=== PATIENT | female | born 2000 | race Two or more races ===

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

== ENCOUNTER 2021-02-15 10:20 | Observation (INO) | payer MEDICAID ==
[2021-02-15 11:36] LABS: Basophils # (auto) 0 10 ^3/uL (0-0.2); Basophils % (auto) 0.5 % (0.0-2.0); Eosinophils # (auto) 0 10 ^3/uL (0-0.8); Eosinophils % (auto) 0.3 % (0.0-7.0); Hematocrit 35.5 % (36.0-46.0); Hemoglobin 12.3 g/dL (12.2-16.2); Lymphocytes # (auto) 1.5 10 ^3/uL (0.4-5.4); Mean Corpuscular Hemoglobin 29.3 pg (28.0-32.0); Mean Corpuscular Hgb Conc. 34.6 g/dL (32.0-36.0); Mean Corpuscular Volume 84.8 fL (80.0-100.0); Monocytes # (auto) 0.4 10 ^3/uL (0-1.3); Neutrophils # (auto) 5.2 10 ^3/uL (1.6-8.6); Neutrophils % (auto) 73.2 % (37.0-80.0); Red Blood Cells 4.19 10^6/uL (4.0-5.20); White Blood Cell 7.1 10^3/uL (4.4-10.8)
[2021-02-15 12:00] LABS: Albumin 2.6 g/dL (3.4-5.0); Calcium 8.1 mg/dL (8.5-10.1); Potassium 3.6 mmol/L (3.5-5.1)
[2021-02-15 12:03] LABS: Bilirubin, Total 0.2 mg/dL (0.2-1.0); Total Protein 6.7 g/dL (6.4-8.2)
== END 2021-02-15 13:08 | disposition home or self-care (01) ==
LOC: LDRP 10:20
PROVIDERS: ADMIT Obstetrics & Gynecology; ATTEND Obstetrics & Gynecology
DX: O26.613 Liver and biliary tract disorders in pregnancy, third trimester (principal); K83.1 Obstruction of bile duct; Z3A.35 35 weeks gestation of pregnancy; Z91.040 Latex allergy status
CPT/HCPCS: 36415; 59025; 76818; 80053; 81002; 84550; 85025; 94760; G0378

== ENCOUNTER 2021-02-22 11:02 | Observation (INO) | payer MEDICAID ==
[2021-02-22] MEDS ORDERED: ACCU-CHEK COMFORT CURVE STRIP VI ONE (11:45)
[2021-02-22] MEDS ORDERED: TERBUTALINE SULFATE 1 MG/ML 1ML VIAL SC SCH (12:30)
[2021-02-22] MEDS ORDERED: PREN-96 PO (13:51)
== END 2021-02-22 14:24 | disposition home or self-care (01) ==
LOC: LDRP 11:02
PROVIDERS: ADMIT Obstetrics & Gynecology; ATTEND Obstetrics & Gynecology
DX: O26.613 Liver and biliary tract disorders in pregnancy, third trimester (principal); K83.1 Obstruction of bile duct; O24.419 Gestational diabetes mellitus in pregnancy, unspecified control; Z3A.36 36 weeks gestation of pregnancy
CPT/HCPCS: 59025; 76818; 81002; 82948; 96372; G0378; J3105

== ENCOUNTER 2021-02-25 11:25 | Observation (INO) | payer MEDICAID ==
[~2021-02-25 11:25] MED LIST: PREN-96 PO
[2021-02-25] MEDS ORDERED: BETAMETHASONE ACET (30mg/5ml) 5ml Vial 6mg/ml IM ONE (12:45)
[2021-02-25 13:11] LABS: Basophils # (auto) 0 10 ^3/uL (0-0.2); Basophils % (auto) 0.4 % (0.0-2.0); Eosinophils # (auto) 0 10 ^3/uL (0-0.8); Eosinophils % (auto) 0.3 % (0.0-7.0); Hematocrit 37.4 % (36.0-46.0); Hemoglobin 12.7 g/dL (12.2-16.2); Lymphocytes # (auto) 1.8 10 ^3/uL (0.4-5.4); Lymphocytes % (auto) 22.6 % (10.0-50.0); Mean Corpuscular Hgb Conc. 34.1 g/dL (32.0-36.0); Monocytes # (auto) 0.4 10 ^3/uL (0-1.3); Monocytes % (auto) 4.8 % (0.0-12.0); Neutrophils # (auto) 5.7 10 ^3/uL (1.6-8.6); Neutrophils % (auto) 71.9 % (37.0-80.0); Red Cell Distribution Width 13.4 % (11.8-14.3); White Blood Cell 7.9 10^3/uL (4.4-10.8)
[2021-02-25 13:25] LABS: INR 0.95 (0.9-1.15); Partial Thromboplastin Time 27.9 sec (23.6-33.0)
[2021-02-25 13:29] LABS: Albumin 2.8 g/dL (3.4-5.0); Calcium 8.6 mg/dL (8.5-10.1); Potassium 3.8 mmol/L (3.5-5.1)
[2021-02-25 13:32] LABS: BUN/Creatinine Ratio 13.6; Bilirubin, Total 0.3 mg/dL (0.2-1.0); Total Protein 6.9 g/dL (6.4-8.2)
[2021-02-26 07:06] LABS: RPR Non Reactive (Non Reactive)
== END 2021-02-25 14:25 | disposition home or self-care (01) ==
LOC: LDRP 11:25
PROVIDERS: ADMIT Obstetrics & Gynecology; ATTEND Obstetrics & Gynecology
DX: O24.419 Gestational diabetes mellitus in pregnancy, unspecified control (principal); Z20.822 Contact with and (suspected) exposure to COVID-19; O26.613 Liver and biliary tract disorders in pregnancy, third trimester; K83.1 Obstruction of bile duct; Z3A.36 36 weeks gestation of pregnancy
CPT/HCPCS: 36415; 59025; 76818; 80053; 81002; 82962; 85025; 85610; 85730; 86592; 86850; 86900; 86901; 96372; G0378; J0702; U0003

== ENCOUNTER 2021-02-26 13:25 | Observation (INO) | payer MEDICAID ==
[~2021-02-26] VITALS: Ht 170.2 cm; Wt 86.6 kg
[2021-02-26] MEDS ORDERED: BETAMETHASONE ACET (30mg/5ml) 5ml Vial 6mg/ml IM SCH (13:45)
== END 2021-02-26 14:45 | disposition home or self-care (01) ==
LOC: LDRP 13:25
PROVIDERS: ADMIT Obstetrics & Gynecology; ATTEND Obstetrics & Gynecology
DX: O24.419 Gestational diabetes mellitus in pregnancy, unspecified control (principal); O26.613 Liver and biliary tract disorders in pregnancy, third trimester; K83.1 Obstruction of bile duct; Z3A.36 36 weeks gestation of pregnancy
CPT/HCPCS: 59025; 81002; 96372; G0378; G0379

== ENCOUNTER 2021-02-27 06:14 | Inpatient (IN) | payer MEDICAID ==
[~2021-02-27] VITALS: Ht 170.2 cm; Wt 86.6 kg
[2021-02-27] MEDS ORDERED: LACTATED RINGER'S 1,000 ML IV ONE (06:30)
[2021-02-27] MEDS ORDERED: ceFAZolin 1GM/50ML 50 ML IV ONE (06:30)
[2021-02-27] MEDS: miSOPROStol 50 MCG per PRE-CUT 1/2 TAB PO PRN ×3 (08:30→16:31)
[2021-02-27] MEDS ORDERED: PROMETHAZINE HCL 25 MG/ML 1ML IV PRN (08:30)
[2021-02-27] MEDS ORDERED: LIDOCAINE 2%HCL (LOCAL ANESTH.) INJ 20ML MDV IJ PRN (08:30)
[2021-02-27] MEDS ORDERED: WITCH HAZEL-GLYCERIN PAD TOP PRN (08:30)
[2021-02-27] MEDS ORDERED: DERMOPLAST 60ML BOTTLE TOP PRN (08:30)
[2021-02-27] MEDS ORDERED: PHISODERM TOP SOLN 240ML BTL TOP PRN (08:30)
[2021-02-27] MEDS: LACTATED RINGER'S 1,000 ML IV SCH (08:33)
[2021-02-27] MEDS: ceFAZolin 1GM/50ML 50 ML IV SCH ×2 (12:36→20:18)
[2021-02-27 13:05] LABS: Urine Bacteria NONE SEEN /hpf (None Seen); Urine Blood TRACE /uL (Negative); Urine Mucus FEW (None Seen); Urine WBC <1 /hpf (0 - 5)
[2021-02-27 13:24] LABS: Amphetamine Screen, Urine NEGATIVE (NEGATIVE); Barbiturate Scree,Urine NEGATIVE (NEGATIVE); Benzodiazephine Screen, Urine NEGATIVE (NEGATIVE); Cannabinoid Screen, Urine POSITIVE (NEGATIVE); Cocaine Screen, Urine NEGATIVE (NEGATIVE); Opiate Scree,Urine NEGATIVE (NEGATIVE); Phencyclidine Screen, Urine NEGATIVE (NEGATIVE)
[2021-02-27] MEDS ORDERED: LACTATED RINGER'S 1,000 ML IV SCH (16:30)
[2021-02-27] MEDS: ACCU-CHEK COMFORT CURVE STRIP VI SCH (18:24)
[2021-02-28] MEDS: ACCU-CHEK COMFORT CURVE STRIP VI SCH ×3 (00:07→12:00)
[2021-02-28] MEDS: LACTATED RINGER'S 1,000 ML IV SCH ×3 (00:16→17:00)
[2021-02-28] MEDS ORDERED: LACT. RINGERS/OXYTOCIN 20UNITS 500 ML IV ONE ×2 (04:15→04:45)
[2021-02-28] MEDS ORDERED: TERBUTALINE SULFATE 1 MG/ML 1ML VIAL SC ONE (04:15)
[2021-02-28] MEDS: LACT. RINGERS/OXYTOCIN 20UNITS 1,000 ML IV SCH (04:31)
[2021-02-28] MEDS ORDERED: DINOPROSTONE 10MG VAG SUPP PV ONE (16:30)
[2021-02-28] MEDS ORDERED: hydrOXYzine 25 MG TAB or CAP PO ONE (23:00)
[2021-02-28] MEDS ORDERED: fentaNYL CITRATE 100 MCG/2 ML VL IV ONE (23:30)
[2021-02-28] MEDS ORDERED: ePHEDrine SULFATE 50 MG/ML AMP IV ONE (23:30)
[2021-02-28] MEDS ORDERED: ROPIVACAINE HCL 200 ML EPI SCH (23:30)
[2021-02-28] MEDS ORDERED: NALOXONE HCL 0.4 MG/ML VIAL IV ONE (23:30)
[2021-02-28] MEDS ORDERED: LIDOCAINE HCL 2 %PF INJ 10ML AMP IJ ONE (23:30)
[2021-02-28] MEDS ORDERED: LACTATED RINGER'S 1,000 ML IV ONE (23:30)
[2021-03-01] MEDS: LACTATED RINGER'S 1,000 ML IV SCH (08:12)
[2021-03-01] MEDS ORDERED: BUTORPHANOL TARTRATE 2 MG/1 ML VIAL IV PRN ×3 (09:30→16:45)
[2021-03-01] MEDS ORDERED: LACT. RINGERS/OXYTOCIN 20UNITS 500 ML IV ONE ×2 (14:00→14:30)
[2021-03-01] MEDS ORDERED: LACT. RINGERS/OXYTOCIN 20UNITS 1,000 ML IV SCH (14:00)
[2021-03-01] MEDS ORDERED: TERBUTALINE SULFATE 1 MG/ML 1ML VIAL SC ONE (14:00)
[2021-03-01] MEDS: LACT. RINGERS/OXYTOCIN 20UNITS 1,000 ML IV SCH (14:34)
[2021-03-01] MEDS ORDERED: D5W/LACTATED RINGERS 1,000 ML IV SCH ×2 (17:00)
[2021-03-01] MEDS: ACCU-CHEK COMFORT CURVE STRIP VI SCH ×2 (19:12→19:15)
== END 2021-03-01 22:40 | disposition home or self-care (01) | DRG 566 ==
LOC: LDRP 06:14
PROVIDERS: ADMIT Obstetrics & Gynecology; ATTEND Obstetrics & Gynecology
PROC: 3E0P7VZ Introduction of Hormone into Female Reproductive, Via Natural or Artificial Opening (ICD-10-PCS; principal; 2021-02-27)
PROC: 0U7C7ZZ Dilation of Cervix, Via Natural or Artificial Opening (ICD-10-PCS; 2021-03-01)
DX: O26.613 Liver and biliary tract disorders in pregnancy, third trimester (principal); K83.1 Obstruction of bile duct; Z3A.37 37 weeks gestation of pregnancy; Z86.32 Personal history of gestational diabetes
CPT/HCPCS: 59025; 59200; 76805; 76818; 80307; 81001; 81002; 82948; 82962; 86850; 86900; 86901; 94760; 94762; 96360; 96361; 96365; 96366; 96372; 96374; 96375; G0378; J0690; J2590

== ENCOUNTER 2021-03-03 18:30 | Inpatient (IN) | payer MEDICAID ==
[~2021-03-03] VITALS: Ht 170.2 cm; Wt 87.5 kg
[2021-03-03 20:45] LABS: Basophils # (auto) 0 10 ^3/uL (0-0.2); Basophils % (auto) 0.3 % (0.0-2.0); Eosinophils # (auto) 0 10 ^3/uL (0-0.8); Eosinophils % (auto) 0.5 % (0.0-7.0); Hematocrit 33.8 % (36.0-46.0); Hemoglobin 11.6 g/dL (12.2-16.2); Lymphocytes # (auto) 2.1 10 ^3/uL (0.4-5.4); Lymphocytes % (auto) 24.2 % (10.0-50.0); Mean Corpuscular Hgb Conc. 34.3 g/dL (32.0-36.0); Mean Corpuscular Volume 84.6 fL (80.0-100.0); Monocytes # (auto) 0.4 10 ^3/uL (0-1.3); Monocytes % (auto) 4.9 % (0.0-12.0); Neutrophils % (auto) 70.1 % (37.0-80.0); Nucleated Red Blood Cells % 0.1 %; Red Cell Distribution Width 13.5 % (11.8-14.3); White Blood Cell 8.5 10^3/uL (4.4-10.8)
[2021-03-03 20:58] LABS: Albumin 2.6 g/dL (3.4-5.0); Calcium 8.2 mg/dL (8.5-10.1); Potassium 3.4 mmol/L (3.5-5.1)
[2021-03-03 21:02] LABS: BUN/Creatinine Ratio 15.4; Bilirubin, Total 0.3 mg/dL (0.2-1.0); Total Protein 6.2 g/dL (6.4-8.2); Uric Acid 3.5 mg/dL (2.6-6.0)
[2021-03-03 21:13] LABS: INR 0.97 (0.9-1.15)
[2021-03-03 21:24] LABS: Urine Bacteria NONE SEEN /hpf (None Seen); Urine Blood Negative /uL (Negative); Urine Mucus FEW (None Seen); Urine Specific Gravity 1.022 (1.001-1.035); Urine WBC 2 /hpf (0 - 5)
[2021-03-03 21:35] LABS: Amphetamine Screen, Urine NEGATIVE (NEGATIVE); Barbiturate Scree,Urine NEGATIVE (NEGATIVE); Benzodiazephine Screen, Urine NEGATIVE (NEGATIVE); Cannabinoid Screen, Urine POSITIVE (NEGATIVE); Cocaine Screen, Urine NEGATIVE (NEGATIVE); Opiate Scree,Urine NEGATIVE (NEGATIVE); Phencyclidine Screen, Urine NEGATIVE (NEGATIVE)
[2021-03-03] MEDS ORDERED: BUTORPHANOL TARTRATE 2 MG/1 ML VIAL IV PRN (22:00)
[2021-03-03] MEDS ORDERED: PROMETHAZINE HCL 25 MG/ML 1ML IV PRN (22:00)
[2021-03-03] MEDS ORDERED: LIDOCAINE 2%HCL (LOCAL ANESTH.) INJ 20ML MDV IJ PRN (22:00)
[2021-03-03] MEDS ORDERED: TERBUTALINE SULFATE 1 MG/ML 1ML VIAL SC ONE (22:00)
[2021-03-03] MEDS: PHISODERM TOP SOLN 240ML BTL TOP PRN (22:29)
[2021-03-03] MEDS: DERMOPLAST 60ML BOTTLE TOP PRN (22:30)
[2021-03-03] MEDS: WITCH HAZEL-GLYCERIN PAD TOP PRN (22:30)
[2021-03-03] MEDS: LACTATED RINGER'S 1,000 ML IV SCH (22:31)
[2021-03-03] MEDS: LACT. RINGERS/OXYTOCIN 20UNITS 1,000 ML IV SCH (22:37)
[2021-03-04] MEDS: BUTORPHANOL TARTRATE 2 MG/1 ML VIAL IV PRN ×2 (01:05→03:51)
[2021-03-04] MEDS: LACTATED RINGER'S 1,000 ML IV SCH ×4 (04:46→20:52)
[2021-03-04] MEDS ORDERED: LACT. RINGERS/OXYTOCIN 20UNITS 500 ML IV ONE ×2 (07:00→07:30)
[2021-03-04] MEDS ORDERED: ePHEDrine SULFATE 50 MG/ML AMP IV ONE (08:15)
[2021-03-04] MEDS ORDERED: fentaNYL CITRATE 100 MCG/2 ML VL EPI ONE ×2 (08:15→23:15)
[2021-03-04] MEDS ORDERED: NALOXONE HCL 0.4 MG/ML VIAL IV ONE (08:15)
[2021-03-04] MEDS ORDERED: LACTATED RINGER'S 1,000 ML IV ONE (08:15)
[2021-03-04] MEDS: ROPIVACAINE HCL 200 ML EPI SCH ×2 (09:22→23:45)
[2021-03-04] MEDS: URSODIOL 300 MG CAP PO SCH ×2 (09:52→22:09)
[2021-03-04] MEDS: LACT. RINGERS/OXYTOCIN 20UNITS 1,000 ML IV SCH (22:08)
[2021-03-04] MEDS ORDERED: SODIUM CHLORIDE 0.9% 300 ML IUPC ONE (23:12)
[2021-03-04] MEDS ORDERED: ROPIVACAINE 0.5% (5MG/ML) 20ML AMPULE IJ ONE (23:15)
[2021-03-04] MEDS ORDERED: SODIUM CHLORIDE 0.9% 1,000 ML IUPC SCH (23:30)
[2021-03-04] MEDS ORDERED: PENICILLIN G POT 5MIL/D5 50ML 50 ML IV ONE (23:30)
[2021-03-05] MEDS: LACTATED RINGER'S 1,000 ML IV SCH (00:39)
[2021-03-05] MEDS ORDERED: PENICILLIN G POTASSIUM 2,500,000 UNITS in D5W 5% 50 ML IV SCH (04:00)
[2021-03-05] MEDS ORDERED: ACETAMINOPHEN 325 MG TAB PO PRN (06:15)
[2021-03-05] MEDS ORDERED: IBUPROFEN 600 MG TAB PO PRN (06:15)
[2021-03-05 07:00] VITALS: BP 92/50
[2021-03-05 07:06] LABS: RPR Non Reactive (Non Reactive)
[2021-03-05 15:25] VITALS: BP 103/56
[2021-03-05] MEDS: URSODIOL 300 MG CAP PO SCH (21:59)
[2021-03-05 23:05] VITALS: BP 94/53
[2021-03-06 03:25] VITALS: BP 108/71
[2021-03-06] MEDS: DERMOPLAST 60ML BOTTLE TOP PRN (08:46)
[2021-03-06] MEDS: WITCH HAZEL-GLYCERIN PAD TOP PRN (08:46)
[2021-03-06] MEDS: PHISODERM TOP SOLN 240ML BTL TOP PRN (08:46)
[2021-03-06] MEDS: URSODIOL 300 MG CAP PO SCH (08:46)
[2021-03-06 09:11] LABS: Albumin 2.3 g/dL (3.4-5.0); Calcium 8.2 mg/dL (8.5-10.1); Potassium 3.5 mmol/L (3.5-5.1)
[2021-03-06 09:13] LABS: BUN/Creatinine Ratio 13.3
[2021-03-06 09:16] LABS: Bilirubin, Total 0.2 mg/dL (0.2-1.0); Total Protein 6.1 g/dL (6.4-8.2)
== END 2021-03-06 12:28 | disposition home or self-care (01) | DRG 560 ==
LOC: LDRP 18:30
PROVIDERS: ADMIT Obstetrics & Gynecology; ATTEND Obstetrics & Gynecology
PROC: 10E0XZZ Delivery of Products of Conception, External Approach (ICD-10-PCS; principal; 2021-03-05)
PROC: 3E0R3BZ Introduction of Anesthetic Agent into Spinal Canal, Percutaneous Approach (ICD-10-PCS; 2021-03-05)
PROC: 00HU33Z Insertion of Infusion Device into Spinal Canal, Percutaneous Approach (ICD-10-PCS; 2021-03-05)
PROC: 10907ZC Drainage of Amniotic Fluid, Therapeutic from Products of Conception, Via Natural or Artificial Opening (ICD-10-PCS; 2021-03-05)
PROC: 10H07YZ Insertion of Other Device into Products of Conception, Via Natural or Artificial Opening (ICD-10-PCS; 2021-03-05)
DX: O26.62 Liver and biliary tract disorders in childbirth (principal); Z37.0 Single live birth; K83.1 Obstruction of bile duct; O69.81X0 Labor and delivery complicated by cord around neck, without compression, not applicable or unspecified; O24.429 Gestational diabetes mellitus in childbirth, unspecified control; Z20.822 Contact with and (suspected) exposure to COVID-19; Z3A.38 38 weeks gestation of pregnancy
CPT/HCPCS: 36415; 59025; 59200; 59409; 62282; 76815; 80053; 80307; 81001; 81002; 82948; 82962; 84550; 85025; 85610; 85730; 86592; 86850; 86900; 86901; 87426; 94760; 94762; 96360; 96361; 96365; 96366; 96374; 96375; G0378; J2540; J2590; J7060

== ENCOUNTER 2023-12-24 08:33 | Emergency (ER) | payer MEDICAID ==
[~2023-12-24] VITALS: Ht 167.6 cm; Wt 81.5 kg
[2023-12-24 10:32] LABS: Urine Bacteria FEW /hpf (None Seen); Urine Blood Negative /uL (Negative); Urine Clarity Clear (Clear); Urine Color Light-Yellow (Yellow); Urine Mucus FEW (None Seen); Urine Protein, UAD Negative (Negative); Urine Specific Gravity 1.017 (1.001-1.035); Urine Urobilinogen Normal (Negative); Urine WBC 3 /hpf (0 - 5); Urine pH 7.5 (5.0-9.0)
[2023-12-24 10:35] VITALS: BP 111/62; PULSE 64; RESP 16; TEMP 97.9; O2SAT 99
[2023-12-24 11:58] LABS: Basophils # (auto) 0 10 ^3/uL (0-0.2); Basophils % (auto) 0.3 % (0.0-2.0); Eosinophils # (auto) 0.1 10 ^3/uL (0-0.8); Eosinophils % (auto) 1.2 % (0.0-7.0); Hematocrit 39.5 % (36.0-46.0); Hemoglobin 13.3 g/dL (12.2-16.2); Lymphocytes # (auto) 1.8 10 ^3/uL (0.4-5.4); Mean Corpuscular Hemoglobin 28.3 pg (28.0-32.0); Mean Corpuscular Hgb Conc. 33.6 g/dL (32.0-36.0); Monocytes # (auto) 0.3 10 ^3/uL (0-1.3); Monocytes % (auto) 3.8 % (0.0-12.0); Neutrophils # (auto) 5.6 10 ^3/uL (1.6-8.6); Neutrophils % (auto) 71.7 % (37.0-80.0); Nucleated Red Blood Cells % 0.1 %; Red Cell Distribution Width 14.1 % (11.8-14.3); White Blood Cell 7.9 10^3/uL (4.4-10.8)
[2023-12-24 12:20] LABS: Alanine Aminotransferase 27 U/L (7-40); Alkaline Phosphatase 58 U/L (46-116); Anion Gap 6 (5-15); Aspartate Aminotransferase 10 U/L (13-40); Calcium 9.3 mg/dL (8.7-10.4); Carbon Dioxide 23 mmol/L (20-30); Chloride 108 mmol/L (98-107); Glucose 84 mg/dL (74-106); Lipase 34 U/L (12-53); Potassium 4.2 mmol/L (3.5-5.1); Sodium 137 mmol/L (136-145)
[2023-12-24 12:21] LABS: Bilirubin, Total 0.4 mg/dL (0.2-1.0)
[2023-12-24 12:29] LABS: BUN/Creatinine Ratio 9.1 (10.0-20.0); Blood Urea Nitrogen < 5 mg/dL (9-23)
== END 2023-12-24 14:16 | disposition home or self-care (01) ==
LOC: ER 08:33
DX: O26.892 Other specified pregnancy related conditions, second trimester (principal); K29.00 Acute gastritis without bleeding; Z3A.16 16 weeks gestation of pregnancy; Z79.899 Other long term (current) drug therapy
CPT/HCPCS: 36415; 76705; 80053; 81001; 83690; 85025

== ENCOUNTER → 2024-02-05 | Outpatient (CLI) | payer MEDICAID ==
[2024-02-05 10:28] LABS: Basophils # (auto) 0 10 ^3/uL (0-0.2); Basophils % (auto) 0.3 % (0.0-2.0); Eosinophils # (auto) 0.1 10 ^3/uL (0-0.8); Eosinophils % (auto) 0.7 % (0.0-7.0); Hematocrit 38.3 % (36.0-46.0); Lymphocytes # (auto) 1.7 10 ^3/uL (0.4-5.4); Lymphocytes % (auto) 18.9 % (10.0-50.0); Mean Corpuscular Hemoglobin 29.3 pg (28.0-32.0); Mean Corpuscular Volume 86.1 fL (80.0-100.0); Monocytes # (auto) 0.4 10 ^3/uL (0-1.3); Monocytes % (auto) 3.9 % (0.0-12.0); Neutrophils # (auto) 6.9 10 ^3/uL (1.6-8.6); Neutrophils % (auto) 76.2 % (37.0-80.0); Red Blood Cells 4.45 10^6/uL (4.0-5.20); Red Cell Distribution Width 14.7 % (11.8-14.3); White Blood Cell 9.1 10^3/uL (4.4-10.8)
[2024-02-05 10:43] LABS: Alanine Aminotransferase 47 U/L (7-40); Alkaline Phosphatase 71 U/L (46-116); Anion Gap 7 (5-15); Carbon Dioxide 23 mmol/L (20-30); Chloride 106 mmol/L (98-107); Potassium 3.8 mmol/L (3.5-5.1); Sodium 136 mmol/L (136-145); Thyroid Stimulating Hormone 0.9 uIU/mL (0.55-4.78)
[2024-02-05 10:44] LABS: BUN/Creatinine Ratio 9.3 (10.0-20.0); Blood Urea Nitrogen 5 mg/dL (9-23); Glucose 84 mg/dL (74-106)
[2024-02-05 10:46] LABS: Albumin 3.8 g/dL (3.2-4.8); Aspartate Aminotransferase 22 U/L (13-40); Bilirubin, Total 0.5 mg/dL (0.2-1.0); Total Protein 6.3 g/dL (5.7-8.2)
[2024-02-05 10:51] LABS: Beta HCG, Quantitative 12435.2 mIU/mL (1.5-4.2)
[2024-02-05 11:03] LABS: Iron 142 ug/dL (50-170)
[2024-02-05 11:06] LABS: % Iron Saturation 40.1 % (15-50); Total Iron Binding Capacity 354 ug/dL (250-425)
[2024-02-05 11:09] LABS: Ferritin 14.2 ng/mL (10-291)
[2024-02-05 11:11] LABS: Free T4 (Free Thyroxine) 0.95 ng/dL (0.89-1.76)
[2024-02-05 11:31] LABS: Amphetamine Screen, Urine Neg (NEGATIVE); Barbiturate Scree,Urine Neg (NEGATIVE); Benzodiazephine Screen, Urine Neg (NEGATIVE); Cocaine Screen, Urine Neg (NEGATIVE)
[2024-02-05 11:32] LABS: Cannabinoid Screen, Urine Pos (NEGATIVE); Opiate Scree,Urine Neg (NEGATIVE); Phencyclidine Screen, Urine Neg (NEGATIVE)
[2024-02-05 11:47] LABS: RUBELLA Positive
== END | disposition home or self-care (01) ==
LOC: LAB 09:38
PROVIDERS: ATTEND Obstetrics & Gynecology
DX: Z36.0 Encounter for antenatal screening for chromosomal anomalies (principal); Z31.430 Encounter of female for testing for genetic disease carrier status for procreative management; Z34.80 Encounter for supervision of other normal pregnancy, unspecified trimester
CPT/HCPCS: 36415; 80053; 80307; 82306; 82728; 83036; 83540; 83550; 84439; 84443; 84702; 85025; 86703; 86762; 86787; 86850; 86900; 86901; 87086; 87340

== ENCOUNTER → 2024-03-14 | Outpatient (CLI) | payer MEDICAID | END | disposition home or self-care (01) | LOC: LAB 08:21 | PROVIDERS: ATTEND Obstetrics & Gynecology | DX: Z34.00 Encounter for supervision of normal first pregnancy, unspecified trimester (principal); Z3A.00 Weeks of gestation of pregnancy not specified | CPT/HCPCS: 36415; 82951; 83036 ==

== ENCOUNTER 2024-04-09 08:05 | Observation (INO) | payer MEDICAID | END 2024-04-09 11:06 | disposition home or self-care (01) | LOC: UNDOADMOB 08:05 → LDRP 08:05 → UNDODISOB 11:06 | PROVIDERS: ADMIT Obstetrics & Gynecology; ATTEND Obstetrics & Gynecology | DX: O24.419 Gestational diabetes mellitus in pregnancy, unspecified control (principal); Z3A.31 31 weeks gestation of pregnancy; Z79.899 Other long term (current) drug therapy | CPT/HCPCS: 59025; 76818; 81002; 82948; 82962; 94760; G0378 ==

== ENCOUNTER 2024-04-16 12:10 | Observation (INO) | payer MEDICAID | END 2024-04-25 15:27 | disposition home or self-care (01) | LOC: LDRP 04-25 13:55 → UNDOADMOB 04-25 13:55 → LDRP 04-25 14:00 → UNDODISOB 04-25 15:27 | PROVIDERS: ADMIT Obstetrics & Gynecology; ATTEND Obstetrics & Gynecology | DX: O24.419 Gestational diabetes mellitus in pregnancy, unspecified control (principal); Z87.891 Personal history of nicotine dependence; Z3A.34 34 weeks gestation of pregnancy | CPT/HCPCS: 59025; 76818; 81002; 94760; G0378 ==

== ENCOUNTER 2024-04-18 17:40 | Observation (INO) | payer MEDICAID ==
[~2024-04-18] VITALS: Ht 167.6 cm; Wt 91.6 kg
[2024-04-18 21:01] LABS: Alanine Aminotransferase 68 U/L (7-40); Albumin 3.7 g/dL (3.2-4.8); Alkaline Phosphatase 175 U/L (46-116); Anion Gap 6 (5-15); Aspartate Aminotransferase 29 U/L (13-40); BUN/Creatinine Ratio 10.9 (10.0-20.0); Bilirubin, Total 0.3 mg/dL (0.2-1.0); Blood Urea Nitrogen 6 mg/dL (9-23); Calcium 9.1 mg/dL (8.7-10.4); Carbon Dioxide 24 mmol/L (20-31); Chloride 108 mmol/L (98-107); Glucose 83 mg/dL (74-106); Potassium 3.6 mmol/L (3.5-5.1); Sodium 138 mmol/L (136-145); Total Protein 6.1 g/dL (5.7-8.2)
== END 2024-04-18 20:22 | disposition home or self-care (01) ==
LOC: LDRP 17:40
PROVIDERS: ADMIT Obstetrics & Gynecology; ATTEND Obstetrics & Gynecology
DX: O36.8130 Decreased fetal movements, third trimester, not applicable or unspecified (principal); O24.419 Gestational diabetes mellitus in pregnancy, unspecified control; Z3A.33 33 weeks gestation of pregnancy; Z87.891 Personal history of nicotine dependence
CPT/HCPCS: 36415; 59025; 76818; 80053; 81002; 82948; 82962; 94760; G0378

== ENCOUNTER 2024-05-02 12:08 | Observation (INO) | payer MEDICAID ==
[2024-05-02 16:27] LABS: Basophils # (auto) 0 10 ^3/uL (0-0.2); Basophils % (auto) 0.3 % (0.0-2.0); Eosinophils # (auto) 0.1 10 ^3/uL (0-0.8); Eosinophils % (auto) 0.7 % (0.0-7.0); Hematocrit 35.1 % (36.0-46.0); Hemoglobin 11.9 g/dL (12.2-16.2); Lymphocytes # (auto) 1.9 10 ^3/uL (0.4-5.4); Lymphocytes % (auto) 21.9 % (10.0-50.0); Mean Corpuscular Hemoglobin 28.2 pg (28.0-32.0); Mean Corpuscular Hgb Conc. 33.9 g/dL (32.0-36.0); Mean Corpuscular Volume 83.2 fL (80.0-100.0); Monocytes # (auto) 0.5 10 ^3/uL (0-1.3); Monocytes % (auto) 5.3 % (0.0-12.0); Neutrophils # (auto) 6.2 10 ^3/uL (1.6-8.6); Neutrophils % (auto) 71.8 % (37.0-80.0); Nucleated Red Blood Cells % 0.1 %; Platelet Count (auto) 221 10^3/uL (140-450); Red Blood Cells 4.22 10^6/uL (4.0-5.20); White Blood Cell 8.7 10^3/uL (4.4-10.8)
[2024-05-02 16:40] LABS: Alanine Aminotransferase 93 U/L (7-40); Albumin 3.7 g/dL (3.2-4.8); Alkaline Phosphatase 212 U/L (46-116); Anion Gap 8 (5-15); Aspartate Aminotransferase 40 U/L (13-40); Bilirubin, Total 0.4 mg/dL (0.2-1.0); Blood Urea Nitrogen 7 mg/dL (9-23); Calcium 8.8 mg/dL (8.7-10.4); Carbon Dioxide 23 mmol/L (20-31); Chloride 107 mmol/L (98-107); Glucose 92 mg/dL (74-106); Potassium 3.7 mmol/L (3.5-5.1); Sodium 138 mmol/L (136-145); Total Protein 6.4 g/dL (5.7-8.2)
== END 2024-05-02 15:45 | disposition home or self-care (01) ==
LOC: LDRP 13:32
PROVIDERS: ADMIT Obstetrics & Gynecology; ATTEND Obstetrics & Gynecology
DX: O26.643 Intrahepatic cholestasis of pregnancy, third trimester (principal); K83.1 Obstruction of bile duct; O24.419 Gestational diabetes mellitus in pregnancy, unspecified control; Z3A.35 35 weeks gestation of pregnancy; Z87.891 Personal history of nicotine dependence
CPT/HCPCS: 36415; 59025; 76818; 80053; 81002; 82948; 82962; 85025; 94760; G0378

== ENCOUNTER 2024-05-06 14:26 | Observation (INO) | payer MEDICAID ==
--- NOTE | 2024-05-09 12:28 | DVH ---
CLINICAL HISTORY: Gestational diabetes and cholestasis. COMPARISON: US BIOPHYSICAL PROFILE on DOS: 05/02/24, US BIOPHYSICAL PROFILE on DOS: 04/25/24, US BIOPH YSICAL PROFILE on DOS: 04/18/24 TECHNIQUE: biophysical profile was performed. Transabdominal sonographic images of the fetus we re obtained. FINDINGS: The fetus is in cephalic position. heart rate measures 132 BPM. Amniotic fluid index measures 11.0 cm. The placenta is anterior in position. No evidence of placenta previa or abruption. BPP profile is an overall score of 8/8, with 2/2 points for breathing, with at least one episode of breathing over a 30 second duration during a 30 minute observation, 2/2 points for m ovements, with 3 or more discrete body or limb movements, 2/2 points for tone, with one or more episodes of extremity extension with return to flexion, or opening and closing of hand, and 2/ 2 points for amniotic fluid, with at least 1 pocket of amniotic fluid that measures 2 cm in 2 perpend icular planes. IMPRESSION: BPP score of 8/8.
[2024-05-09] MEDS ORDERED: [UNRECOGNIZED DRUG - CODE] PO (12:48)
--- NOTE | 2024-05-09 16:59 | DVHDS2 ---
Physician Discharge Progress N Final Diagnosis: IUP 36 wk, Cholestasis of GDM Operations or Procedures: Operations or Procedures NST/BPP/VIANCA Accucheck Bile acids (results not available) Commentary: Commentary status reassuring Condition on Discharge: Stable Disposition: Home Discharge Instructions: Diet: Regular Activity: No Restrictions, As Tolerated Follow Up/Referral: continue with twice weekly NST/BPP's/return to nearest hospital for any concerns, keep all scheduled appt's with primary OBGYN F/U with Dr. Jimenes to schedule medically indicated induction of labor Medications: continue all prescription medications exactly as prescribed Follow Up Care: Discharge Statement: "Patient was advised to return to the ER or call 911 if any headaches, dizziness, shortness of breath, chest pain, abdominal pain, bleeding, fevers, or worsening of medical condition. Patient was counseled about treatment plan, medications, possible side effects, patientverbalized understanding. All questions were answered to the best of my ability. This discharge took greater then 30 minutes in planning, reviewing documentation, counseling the patient, and discussing with other team members." MIKE GARSIA DO May 09, 2024 16:59
== END 2024-05-09 13:10 | disposition home or self-care (01) ==
LOC: LDRP 05-09 11:21
PROVIDERS: ADMIT Obstetrics & Gynecology; ATTEND Obstetrics & Gynecology
DX: O24.419 Gestational diabetes mellitus in pregnancy, unspecified control (principal); O26.643 Intrahepatic cholestasis of pregnancy, third trimester; K83.1 Obstruction of bile duct; Z3A.36 36 weeks gestation of pregnancy; Z79.899 Other long term (current) drug therapy
CPT/HCPCS: 59025; 76818; 81002; G0378

== ENCOUNTER → 2024-05-06 | Outpatient (CLI) | payer MEDICAID ==
[2024-05-06 13:16] LABS: Basophils # (auto) 0 10 ^3/uL (0-0.2); Basophils % (auto) 0.2 % (0.0-2.0); Eosinophils # (auto) 0.1 10 ^3/uL (0-0.8); Eosinophils % (auto) 0.5 % (0.0-7.0); Hematocrit 38.1 % (36.0-46.0); Hemoglobin 12.7 g/dL (12.2-16.2); Lymphocytes % (auto) 19.7 % (10.0-50.0); Mean Corpuscular Hemoglobin 27.9 pg (28.0-32.0); Mean Corpuscular Hgb Conc. 33.2 g/dL (32.0-36.0); Monocytes # (auto) 0.5 10 ^3/uL (0-1.3); Monocytes % (auto) 4.4 % (0.0-12.0); Neutrophils # (auto) 7.8 10 ^3/uL (1.6-8.6); Neutrophils % (auto) 75.2 % (37.0-80.0); Platelet Count (auto) 248 10^3/uL (140-450); Red Blood Cells 4.54 10^6/uL (4.0-5.20); Red Cell Distribution Width 13.2 % (11.8-14.3); White Blood Cell 10.4 10^3/uL (4.4-10.8)
[2024-05-06 13:52] LABS: Alanine Aminotransferase 80 U/L (7-40); Alkaline Phosphatase 230 U/L (46-116); Calcium 9.3 mg/dL (8.7-10.4); Carbon Dioxide 25 mmol/L (20-31); Chloride 106 mmol/L (98-107)
[2024-05-06 13:53] LABS: Albumin 4.1 g/dL (3.2-4.8); Anion Gap 5 (5-15); Aspartate Aminotransferase 27 U/L (13-40); BUN/Creatinine Ratio 11.5 (10.0-20.0); Bilirubin, Total 0.4 mg/dL (0.2-1.0); Blood Urea Nitrogen 7 mg/dL (9-23); Glucose 83 mg/dL (74-106); Potassium 4.1 mmol/L (3.5-5.1); Sodium 136 mmol/L (136-145)
== END | disposition home or self-care (01) ==
LOC: LAB 12:28
PROVIDERS: ATTEND Nurse Practitioner Women's Health
DX: Z34.00 Encounter for supervision of normal first pregnancy, unspecified trimester (principal); E78.9 Disorder of lipoprotein metabolism, unspecified
CPT/HCPCS: 36415; 80053; 85025

== ENCOUNTER 2024-05-12 11:10 | Observation (INO) | payer MEDICAID ==
[~2024-05-12 11:10] MED LIST changes: +[UNRECOGNIZED DRUG - CODE] PO
--- NOTE | 2024-05-12 12:32 | DVH ---
BIOPHYSICAL PROFILE HISTORY: GDMA1/Dorinda TECHNIQUE: Multiple transabdominal real-time grayscale sonographic images through the gravid uterus of the fetus with duplex Doppler color flow and M-mode spectral analysis Comparison: 05/02/2024 FINDINGS: BIOPHYSICAL PROFILE: breathing score: 2/2 movement score: 2/2 tone score: 2/2 Quantitative VIANCA score: 8/8 (VIANCA: 12.4 Cm.) Total score: 8/8 The cervix closed Single live fetus in breech presentation. heart rate 120 beats per minute. Anterior placenta without previa or abruption IMPRESSION: 1. Biophysical profile score: 8/8 2. Compared to previous exam amniotic fluid index has increased slightly from 11 cm to 12.4 cm
--- NOTE | 2024-05-12 17:52 | DVHDS2 ---
Physician Discharge Progress N Final Diagnosis: GDMA1 Cholestasis of Operations or Procedures: Operations or Procedures NST/BPP/VIANCA Accucheck Commentary: Commentary status reassuring. Condition on Discharge: Stable Disposition: Home Discharge Instructions: Diet: Consistent carbohydrate Activity: No Restrictions, As Tolerated Follow Up/Referral: As scheduled Medications: N/A Follow Up Care: Discharge Statement: "Patient was advised to return to the ER or call 911 if any headaches, dizziness, shortness of breath, chest pain, abdominal pain, bleeding, fevers, or worsening of medical condition. Patient was counseled about treatment plan, medications, possible side effects, patientverbalized understanding. All questions were answered to the best of my ability. This discharge took greater then 30 minutes in planning, reviewing d ocumentation, counseling the patient, and discussing with other team members." MIKE GARSIA DO May 12, 2024 17:52
== END 2024-05-12 13:07 | disposition home or self-care (01) ==
LOC: UNDOADMOB 11:10 → LDRP 11:10
PROVIDERS: ADMIT Obstetrics & Gynecology; ATTEND Obstetrics & Gynecology
DX: O26.643 Intrahepatic cholestasis of pregnancy, third trimester (principal); K83.1 Obstruction of bile duct; O24.419 Gestational diabetes mellitus in pregnancy, unspecified control; O62.9 Abnormality of forces of labor, unspecified; Z3A.36 36 weeks gestation of pregnancy; Z79.899 Other long term (current) drug therapy
CPT/HCPCS: 59025; 76818; 81002; 94760; G0378

== ENCOUNTER 2024-05-15 14:26 | Inpatient (IN) | payer MEDICAID ==
[~2024-05-15] VITALS: Ht 170.2 cm; Wt 95.3 kg
[2024-05-15] MEDS: LACT. RINGERS/OXYTOCIN 20UNITS 500 ML IV ONE (22:30)
[2024-05-15] MEDS ORDERED: LIDOCAINE 2%HCL (LOCAL ANESTH.) INJ 20ML MDV IJ PRN (22:30)
[2024-05-15] MEDS ORDERED: TERBUTALINE SULFATE 1 MG/ML 1ML VIAL SC PRN (22:30)
[2024-05-15] MEDS ORDERED: ONDANSETRON HCL 4 MG/2 ML VIAL IV PRN (22:30)
[2024-05-15 23:08] LABS: Urine Bacteria None Seen /hpf (None Seen)
[2024-05-15 23:15] LABS: Basophils # (auto) 0 10 ^3/uL (0-0.2); Basophils % (auto) 0.4 % (0.0-2.0); Eosinophils # (auto) 0 10 ^3/uL (0-0.8); Eosinophils % (auto) 0.6 % (0.0-7.0); Hemoglobin 11.8 g/dL (12.2-16.2); Lymphocytes # (auto) 2.1 10 ^3/uL (0.4-5.4); Lymphocytes % (auto) 28.5 % (10.0-50.0); Mean Corpuscular Hemoglobin 28.2 pg (28.0-32.0); Mean Corpuscular Hgb Conc. 33.8 g/dL (32.0-36.0); Mean Corpuscular Volume 83.3 fL (80.0-100.0); Monocytes # (auto) 0.4 10 ^3/uL (0-1.3); Monocytes % (auto) 4.7 % (0.0-12.0); Neutrophils # (auto) 4.9 10 ^3/uL (1.6-8.6); Neutrophils % (auto) 65.8 % (37.0-80.0); Nucleated Red Blood Cells % 0.1 %; Platelet Count (auto) 228 10^3/uL (140-450); Red Cell Distribution Width 13.7 % (11.8-14.3); White Blood Cell 7.4 10^3/uL (4.4-10.8)
[2024-05-15 23:22] LABS: Urine Blood Negative /uL (Negative); Urine Clarity Clear (Clear); Urine Color Yellow (Yellow); Urine Mucus FEW (None Seen); Urine Protein, UAD Negative (Negative); Urine Specific Gravity 1.015 (1.001-1.035); Urine Urobilinogen Normal (Negative); Urine WBC 2 /hpf (0 - 5); Urine pH 6.5 (5.0-9.0)
[2024-05-15 23:29] LABS: Amphetamine Screen, Urine Neg (NEGATIVE); Barbiturate Scree,Urine Neg (NEGATIVE); Benzodiazephine Screen, Urine Neg (NEGATIVE); Cocaine Screen, Urine Neg (NEGATIVE); Opiate Scree,Urine Neg (NEGATIVE)
[2024-05-15 23:30] LABS: Cannabinoid Screen, Urine Pos (NEGATIVE); Phencyclidine Screen, Urine Neg (NEGATIVE)
[2024-05-15] MEDS: URSODIOL 300 MG CAP PO SCH (23:32)
[2024-05-15 23:38] LABS: INR 0.93 (0.9-1.15); Partial Thromboplastin Time 27.1 SEC (24.5-34.5); Prothrombin Time 9.9 sec (9.3-11.8)
[2024-05-16] LABS: Alanine Aminotransferase 116 U/L (7-40); Albumin 3.9 g/dL (3.2-4.8); Alkaline Phosphatase 233 U/L (46-116); Anion Gap 7 (5-15); Aspartate Aminotransferase 50 U/L (13-40); BUN/Creatinine Ratio 12.1 (10.0-20.0); Bilirubin, Total 0.5 mg/dL (0.2-1.0); Blood Urea Nitrogen 7 mg/dL (9-23); Calcium 9.1 mg/dL (8.7-10.4); Carbon Dioxide 22 mmol/L (20-31); Chloride 108 mmol/L (98-107); Glucose 100 mg/dL (74-106); Potassium 3.5 mmol/L (3.5-5.1); Sodium 137 mmol/L (136-145); Total Protein 6.3 g/dL (5.7-8.2)
[2024-05-16] MEDS: DERMOPLAST 60ML BOTTLE TOP PRN (00:46)
[2024-05-16] MEDS: PHISODERM TOP SOLN 240ML BTL TOP PRN (00:46)
[2024-05-16] MEDS: WITCH HAZEL-GLYCERIN PAD TOP PRN (00:46)
--- NOTE | 2024-05-16 00:46 | DVHHP ---
ADMIT DATE: 05/15/2024 CHIEF COMPLAINT: Here for induction of labor secondary to cholestasis. HISTORY OF PRESENT ILLNESS: The patient is a 24-year-old 2, para 1 with EDC 06/05, estimated gestational age of 37 weeks, admitted for induction secondary to cholestasis. The patient has been seeing the meat butcher, Aussie. She has been placed on Actigall. Subsequently due to severe itching, which was not relieved by Actigall, the patient was scheduled for induction of labor. Risks, complication, failure rate had been discussed with her, the patient fully understands. She wishes to proceed with planned procedure. She also has GDM A1. PAST MEDICAL HISTORY: None. PAST SURGICAL HISTORY: None. SOCIAL HISTORY: None. FAMILY HISTORY: None. OBSTETRIC AND GYNECOLOGIC HISTORY: Blood type O positive, rubella immune. REVIEW OF SYSTEMS: Consistent with HPI. PHYSICAL EXAMINATION: VITAL SIGNS: Stable, afebrile. HEENT: Within normal limits. CARDIOVASCULAR: Regular rate and rhythm. LUNGS: Clear to auscultation. BREASTS: Symmetrical. No masses. ABDOMEN: Gravid. Positive heart. PELVIC: Fingertip, thick, high. EXTREMITIES: No clubbing, cyanosis or edema. IMPRESSION: * Intrauterine at 37 weeks with cholestasis. * Gestational diabetes mellitus. PLAN: Induction of labor. We will proceed with Cytotec. Informed consent obtained. Amelie Jimenes DO MZ/ISAI TID: [id number] RECEIPT: [id number]
[2024-05-16] MEDS: miSOPROStol 50 MCG per PRE-CUT 1/2 TAB PO PRN (00:47)
[2024-05-16] MEDS: LACTATED RINGER'S 1,000 ML IV SCH (00:53)
--- NOTE | 2024-05-16 01:17 | DVH ---
OB ULTRASOUND, LIMITED CLINICAL INDICATION: Presentation TECHNIQUE: Multiple grayscale ultrasound and M-mode images were obtained of the pelvis for evaluation of intrauterine . COMPARISON: OBLTD on DOS: 03/03/21 FINDINGS / IMPRESSION: Intrauterine is in cephalic presentation
[2024-05-16] MEDS: ACCU-CHEK COMFORT CURVE STRIP VI SCH (02:56)
[2024-05-16] MEDS: URSODIOL 300 MG CAP PO SCH (07:25)
[2024-05-16] MEDS: ACETAMINOPHEN 325 MG TAB PO PRN (14:04)
--- NOTE | 2024-05-16 17:31 | DVHPN2 ---
OB Labor Progress Note Date and Time Seen Date Seen: May 16, 2024 Time Seen: 17:29 Subjective Subjective Comment 24y IUP 37.[address] Jimenes for INDUCTION OF LABOR due to Cholestasis of s/p Cytotec x several doses Pain mild to moderate. Objective Vital Signs Afeb VS stable Monitoring Method Monitoring Method: External Heart Rate Heart Rate Baseline: 130 Heart Rate Variability: Moderate Presence of FHR Accelerations: Yes Presence of FHR Decelerations: No Contractions Contractions Frequency: Occasional Contractions Intensity: Moderate Contractions Resting Tone: Relaxed Membranes Membranes: Intact Vaginal Exam Vag Exam Deferred: Yes Medications Medications - Pitocin: No Medication - Epidural: No Lab Results Lab Results Current Medications Medications (Trade) Dose Ordered Sig/Shaheed Start Time Stop Time Status Last Admin Dose Admin Lactated Ringer's 1,000 ml @ 125 mls/hr Q8H 05/15/24 22:30 05/16/24 00:53 125 MLS/HR Nalbuphine HCl (Nubain) 10 mg Q4HP PRN 05/15/24 22:30 Diagnostic Test (Pha) (Accu-Chek Comfort Curve T) 1 strip Q4HR 05/16/24 04:00 05/16/24 02:56 1 STRIP Witch Litzy (Tucks) 1 pad PRN PRN 05/15/24 22:30 05/16/24 00:46 1 PAD Sodium Lauryl Sulfate (Phisoderm) 240 ml PRN PRN 05/15/24 22:30 05/16/24 00:46 240 ML Benzocaine (Dermoplast) 1 applic PRN PRN 05/15/24 22:30 05/16/24 00:46 1 APPLIC Misoprostol (Cytotec) 50 mcg Q4HPRN PRN 05/15/24 22:30 05/16/24 15:51 50 MCG Lidocaine HCl (Xylocaine) 20 ml ONCE PRN 05/15/24 22:30 Terbutaline Sulfate (Brethine Inj) 0.25 mg ONCE PRN 05/15/24 22:30 Oxytocin 500 ml @ 999 mls/hr Q31M ONCE 05/15/24 22:30 05/15/24 23:00 DC Oxytocin 500 ml @ 125 mls/hr Q4H ONCE 05/15/24 23:00 05/16/24 02:59 DC Ondansetron HCl (Zofran) 4 mg Q4HP PRN 05/15/24 22:30 Ursodiol (Actigall) 300 mg TID 05/15/24 23:00 05/16/24 03:35 DC 05/15/24 23:32 300 MG Ursodiol (Actigall) 300 mg Q8HR 05/16/24 07:30 05/16/24 14:03 300 MG Oxytocin 1,000 ml @ 6 ml/hr Q24H 05/16/24 10:15 Acetaminophen (Tylenol Tablet) 650 mg Q4HP PRN 05/16/24 13:15 05/16/24 14:04 650 MG Laboratory Tests Test 05/16/24 15:03 05/15/24 22:55 05/15/24 21:55 Range/Units POC Glucose 82 70-106 mg/dl White Blood Count 7.4 4.4-10.8 10^3/uL Red Blood Count 4.20 4.0-5.20 10^6/uL Hemoglobin 11.8 L 12.2-16.2 g/dL Hematocrit 35.0 L 36.0-46.0 % Mean Corpuscular Volume 83.3 80.0-100.0 fL Mean Corpuscular Hemoglobin 28.2 28.0-32.0 pg Mean Corpuscular Hemoglobin Concent 33.8 32.0-36.0 g/dL Red Cell Distribution Width 13.7 11.8-14.3 % Platelet Count 228 140-450 10^3/uL Mean Platelet Volume 9.4 6.9-10.8 fL Neutrophils (%) (Auto) 65.8 37.0-80.0 % Lymphocytes (%) (Auto) 28.5 10.0-50.0 % Monocytes (%) (Auto) 4.7 0.0-12.0 % Eosinophils (%) (Auto) 0.6 0.0-7.0 % Basophils (%) (Auto) 0.4 0.0-2.0 % Neutrophils # (Auto) 4.9 1.6-8.6 10 ^3/uL Lymphocytes # (Auto) 2.1 0.4-5.4 10 ^3/uL Monocytes # (Auto) 0.4 0-1.3 10 ^3/uL Eosinophils # (Auto) 0 0-0.8 10 ^3/uL Basophils # (Auto) 0 0-0.2 10 ^3/uL Nucleated Red Blood Cells 0.1 % Prothrombin Time 9.9 9.3-11.8 sec Prothrombin Time INR 0.93 0.9-1.15 Activated Partial Thromboplast Time 27.1 24.5-34.5 SEC Urine Color Yellow Yellow Urine Clarity Clear Clear Urine pH 6.5 5.0-9.0 Urine Specific [place] 1.015 1.001-1.035 Urine Protein Negative Negative Urine Ketones Negative Negative Urine Blood Negative Negative /uL Urine Nitrite Negative Negative Urine Bilirubin Negative Negative Urine Urobilinogen Normal Negative mg/dL Urine Leukocyte Esterase 2+ Negative /uL Urine RBC 1 0 - 4 /hpf Urine WBC 2 0 - 5 /hpf Urine Squamous Epithelial Cells Few <5 /hpf Urine Bacteria None seen None Seen /hpf Urine Mucus Few None Seen Urine Glucose Normal Normal mg/dL Sodium Level 137 136-145 mmol/L Potassium Level 3.5 3.5-5.1 mmol/L Chloride Level 108 H 98-107 mmol/L Carbon Dioxide Level 22 20-31 mmol/L Anion Gap 7 5-15 Blood Urea Nitrogen 7 L 9-23 mg/dL Creatinine 0.58 0.550-1.02 mg/dL Glomerular Filtration Rate Calc 130 >90 mL/min BUN/Creatinine Ratio 12.1 10.0-20.0 Serum Glucose 100 74-106 mg/dL Calcium Level 9.1 8.7-10.4 mg/dL Total Bilirubin 0.5 0.2-1.0 mg/dL Aspartate Amino Transferase (AST) 50 H 13-40 U/L Alanine Aminotransferase (ALT) 116 H 7-40 U/L Alkaline Phosphatase 233 H 46-116 U/L Total Protein 6.3 5.7-8.2 g/dL Albumin 3.9 3.2-4.8 g/dL Urine Opiates Screen Neg NEGATIVE Urine Fentanyl Screen Neg NEGATIVE Urine Barbiturates Screen Neg NEGATIVE Urine Phencyclidine Screen Neg NEGATIVE Urine Amphetamines Screen Neg NEGATIVE Urine Benzodiazepines Screen Neg NEGATIVE Urine Cocaine Screen Neg NEGATIVE Urine Cannabinoids Screen Pos NEGATIVE Rapid Plasma Reagin Pending Treponema pallidum Ab (TP-PA) Pending Assessment Assessment Early Term IUP 37.1 wk, Medically indicated IOL due to IHCP (Intrahepatic Cholestasis of ) Plan Plan Continue labor induction Pain control GBS prophylaxis, as indicated Plan of care discussed with patient and RN Plan discussed with: Patient MIKE GARSIA DO May 16, 2024 17:31
--- NOTE | 2024-05-17 02:29 | DVHPN2 ---
OB Labor Progress Note Date and Time Seen Date Seen: May 17, 2024 Time Seen: 02:27 Subjective Subjective Comment Procedure performed: COOK cervical balloon placement. Indication: Medically indicated labor induction s/p cytotec x 5 doses. Monitoring Method Monitoring Method: External Heart Rate Heart Rate Baseline: 135 Heart Rate Variability: Moderate Presence of FHR Accelerations: Yes Presence of FHR Decelerations: No Contractions Contractions Intensity: Moderate Membranes Membranes: Intact Vaginal Exam Vaginal Exam Dilation: 2 Vaginal Exam Effacement: 50 Vaginal Exam Station: -3 Vaginal Exam Presentation: VTX Medications Medications - Pitocin: No Medication - Epidural: No Lab Results Lab Results Current Medications Medications (Trade) Dose Ordered Sig/Shaheed Start Time Stop Time Status Last Admin Dose Admin Lactated Ringer's 1,000 ml @ 125 mls/hr Q8H 05/15/24 22:30 05/16/24 19:53 125 MLS/HR Nalbuphine HCl (Nubain) 10 mg Q4HP PRN 05/15/24 22:30 Diagnostic Test (Pha) (Accu-Chek Comfort Curve T) 1 strip Q4HR 05/16/24 04:00 05/16/24 02:56 1 STRIP Witch Litzy (Tucks) 1 pad PRN PRN 05/15/24 22:30 05/16/24 00:46 1 PAD Sodium Lauryl Sulfate (Phisoderm) 240 ml PRN PRN 05/15/24 22:30 05/16/24 00:46 240 ML Benzocaine (Dermoplast) 1 applic PRN PRN 05/15/24 22:30 05/16/24 00:46 1 APPLIC Misoprostol (Cytotec) 50 mcg Q4HPRN PRN 05/15/24 22:30 05/16/24 21:54 50 MCG Lidocaine HCl (Xylocaine) 20 ml ONCE PRN 05/15/24 22:30 Terbutaline Sulfate (Brethine Inj) 0.25 mg ONCE PRN 05/15/24 22:30 Oxytocin 500 ml @ 999 mls/hr Q31M ONCE 05/15/24 22:30 05/15/24 23:00 DC Oxytocin 500 ml @ 125 mls/hr Q4H ONCE 05/15/24 23:00 05/16/24 02:59 DC Ondansetron HCl (Zofran) 4 mg Q4HP PRN 05/15/24 22:30 Ursodiol (Actigall) 300 mg TID 05/15/24 23:00 05/16/24 03:35 DC 05/15/24 23:32 300 MG Ursodiol (Actigall) 300 mg Q8HR 05/16/24 07:30 05/16/24 21:54 300 MG Oxytocin 1,000 ml @ 6 ml/hr Q24H 05/16/24 10:15 Acetaminophen (Tylenol Tablet) 650 mg Q4HP PRN 05/16/24 13:15 05/16/24 19:53 650 MG Laboratory Tests Test 05/16/24 22:39 05/15/24 22:55 05/15/24 21:55 Range/Units POC Glucose 128 H 70-106 mg/dl White Blood Count 7.4 4.4-10.8 10^3/uL Red Blood Count 4.20 4.0-5.20 10^6/uL Hemoglobin 11.8 L 12.2-16.2 g/dL Hematocrit 35.0 L 36.0-46.0 % Mean Corpuscular Volume 83.3 80.0-100.0 fL Mean Corpuscular Hemoglobin 28.2 28.0-32.0 pg Mean Corpuscular Hemoglobin Concent 33.8 32.0-36.0 g/dL Red Cell Distribution Width 13.7 11.8-14.3 % Platelet Count 228 140-450 10^3/uL Mean Platelet Volume 9.4 6.9-10.8 fL Neutrophils (%) (Auto) 65.8 37.0-80.0 % Lymphocytes (%) (Auto) 28.5 10.0-50.0 % Monocytes (%) (Auto) 4.7 0.0-12.0 % Eosinophils (%) (Auto) 0.6 0.0-7.0 % Basophils (%) (Auto) 0.4 0.0-2.0 % Neutrophils # (Auto) 4.9 1.6-8.6 10 ^3/uL Lymphocytes # (Auto) 2.1 0.4-5.4 10 ^3/uL Monocytes # (Auto) 0.4 0-1.3 10 ^3/uL Eosinophils # (Auto) 0 0-0.8 10 ^3/uL Basophils # (Auto) 0 0-0.2 10 ^3/uL Nucleated Red Blood Cells 0.1 % Prothrombin Time 9.9 9.3-11.8 sec Prothrombin Time INR 0.93 0.9-1.15 Activated Partial Thromboplast Time 27.1 24.5-34.5 SEC Urine Color Yellow Yellow Urine Clarity Clear Clear Urine pH 6.5 5.0-9.0 Urine Specific [place] 1.015 1.001-1.035 Urine Protein Negative Negative Urine Ketones Negative Negative Urine Blood Negative Negative /uL Urine Nitrite Negative Negative Urine Bilirubin Negative Negative Urine Urobilinogen Normal Negative mg/dL Urine Leukocyte Esterase 2+ Negative /uL Urine RBC 1 0 - 4 /hpf Urine WBC 2 0 - 5 /hpf Urine Squamous Epithelial Cells Few <5 /hpf Urine Bacteria None seen None Seen /hpf Urine Mucus Few None Seen Urine Glucose Normal Normal mg/dL Sodium Level 137 136-145 mmol/L Potassium Level 3.5 3.5-5.1 mmol/L Chloride Level 108 H 98-107 mmol/L Carbon Dioxide Level 22 20-31 mmol/L Anion Gap 7 5-15 Blood Urea Nitrogen 7 L 9-23 mg/dL Creatinine 0.58 0.550-1.02 mg/dL Glomerular Filtration Rate Calc 130 >90 mL/min BUN/Creatinine Ratio 12.1 10.0-20.0 Serum Glucose 100 74-106 mg/dL Calcium Level 9.1 8.7-10.4 mg/dL Total Bilirubin 0.5 0.2-1.0 mg/dL Aspartate Amino Transferase (AST) 50 H 13-40 U/L Alanine Aminotransferase (ALT) 116 H 7-40 U/L Alkaline Phosphatase 233 H 46-116 U/L Total Protein 6.3 5.7-8.2 g/dL Albumin 3.9 3.2-4.8 g/dL Urine Opiates Screen Neg NEGATIVE Urine Fentanyl Screen Neg NEGATIVE Urine Barbiturates Screen Neg NEGATIVE Urine Phencyclidine Screen Neg NEGATIVE Urine Amphetamines Screen Neg NEGATIVE Urine Benzodiazepines Screen Neg NEGATIVE Urine Cocaine Screen Neg NEGATIVE Urine Cannabinoids Screen Pos NEGATIVE Rapid Plasma Reagin Pending Treponema pallidum Ab (TP-PA) Pending Assessment Assessment GDMA1, Cholestasis of IUP 37+ wk, induction of labor Plan Plan Tolerated well, Cervical COOK Balloon placement for labor induction 80ml Per each balloon filled. Plan discussed with: Patient GARIBAMIKE HART May 17, 2024 02:29
[2024-05-17] MEDS: NALBUPHINE HCL 10 MG/1ml INJECTION IV PRN (04:14)
[2024-05-17] MEDS ORDERED: NALBUPHINE HCL 10 MG/1ml INJECTION IV PRN (04:15)
[2024-05-17] MEDS: PENICILLIN G POT 5MIL/D5 50ML 50 ML IV ONE (06:47)
[2024-05-17] MEDS ORDERED: PENICILLIN G POTASSIUM 2,500,000 UNITS in D5W 5% 50 ML IV SCH (07:30)
[2024-05-17 08:06] LABS: RPR Non Reactive (Non Reactive)
[2024-05-17] MEDS: LACT. RINGERS/OXYTOCIN 20UNITS 1,000 ML IV SCH (08:49)
--- NOTE | 2024-05-17 10:07 | DVHPN2 ---
OB Labor Progress Note Date and Time Seen Date Seen: May 17, 2024 Time Seen: 10:04 Subjective Patient reports: No new complaints Subjective Comment Contractions getting stronger and more painful. Declines Epidural COOK Balloon removed. Monitoring Method Monitoring Method: External Heart Rate Heart Rate Baseline: 140 Heart Rate Variability: Moderate Presence of FHR Accelerations: Yes Presence of FHR Decelerations: No Contractions Contractions Intensity: Moderate Contractions Resting Tone: Relaxed Membranes Membranes: Ruptured (AROM) Amniotic Fluid Color: Clear Vaginal Exam Vag Exam Deferred: No Vaginal Exam Dilation: 5 Vaginal Exam Effacement: 70 Vaginal Exam Station: -3 Vaginal Exam Presentation: VTX Vaginal Exam Show: Small Medications Medications - Pitocin: Yes Medication - Epidural: No Lab Results Lab Results Vital Signs Date Time Temp Pulse Resp B/P (MAP) Pulse Ox O2 Delivery O2 Flow Rate FiO2 05/17/24 08:23 65 16 101/62 Current Medications Medications (Trade) Dose Ordered Sig/Shaheed Start Time Stop Time Status Last Admin Dose Admin Lactated Ringer's 1,000 ml @ 125 mls/hr Q8H 05/15/24 22:30 05/17/24 03:19 125 MLS/HR Nalbuphine HCl (Nubain) 10 mg Q4HP PRN 05/15/24 22:30 05/17/24 08:23 10 MG Diagnostic Test (Pha) (Accu-Chek Comfort Curve T) 1 strip Q4HR 05/16/24 04:00 05/16/24 02:56 1 STRIP Witch Litzy (Tucks) 1 pad PRN PRN 05/15/24 22:30 05/16/24 00:46 1 PAD Sodium Lauryl Sulfate (Phisoderm) 240 ml PRN PRN 05/15/24 22:30 05/16/24 00:46 240 ML Benzocaine (Dermoplast) 1 applic PRN PRN 05/15/24 22:30 05/16/24 00:46 1 APPLIC Misoprostol (Cytotec) 50 mcg Q4HPRN PRN 05/15/24 22:30 05/16/24 21:54 50 MCG Lidocaine HCl (Xylocaine) 20 ml ONCE PRN 05/15/24 22:30 Terbutaline Sulfate (Brethine Inj) 0.25 mg ONCE PRN 05/15/24 22:30 Oxytocin 500 ml @ 999 mls/hr Q31M ONCE 05/15/24 22:30 05/15/24 23:00 DC Oxytocin 500 ml @ 125 mls/hr Q4H ONCE 05/15/24 23:00 05/16/24 02:59 DC Ondansetron HCl (Zofran) 4 mg Q4HP PRN 05/15/24 22:30 Ursodiol (Actigall) 300 mg TID 05/15/24 23:00 05/16/24 03:35 DC 05/15/24 23:32 300 MG Ursodiol (Actigall) 300 mg Q8HR 05/16/24 07:30 05/17/24 05:38 300 MG Oxytocin 1,000 ml @ 6 ml/hr Q24H 05/16/24 10:15 05/17/24 08:49 6 ML/HR Acetaminophen (Tylenol Tablet) 650 mg Q4HP PRN 05/16/24 13:15 05/16/24 19:53 650 MG Penicillin G Potassium 50 ml @ 100 mls/hr ONCE ONCE 05/17/24 03:30 05/17/24 03:59 DC 05/17/24 06:47 100 MLS/HR Penicillin G Potassium [id number] units/Dextrose 50 ml @ 100 mls/hr Q4H 05/17/24 07:30 Nalbuphine HCl (Nubain) 10 mg Q4HP PRN 05/17/24 04:15 05/17/24 05:35 DC Laboratory Tests Test 05/17/24 02:54 05/15/24 22:55 05/15/24 21:55 Range/Units POC Glucose 96 70-106 mg/dl White Blood Count 7.4 4.4-10.8 10^3/uL Red Blood Count 4.20 4.0-5.20 10^6/uL Hemoglobin 11.8 L 12.2-16.2 g/dL Hematocrit 35.0 L 36.0-46.0 % Mean Corpuscular Volume 83.3 80.0-100.0 fL Mean Corpuscular Hemoglobin 28.2 28.0-32.0 pg Mean Corpuscular Hemoglobin Concent 33.8 32.0-36.0 g/dL Red Cell Distribution Width 13.7 11.8-14.3 % Platelet Count 228 140-450 10^3/uL Mean Platelet Volume 9.4 6.9-10.8 fL Neutrophils (%) (Auto) 65.8 37.0-80.0 % Lymphocytes (%) (Auto) 28.5 10.0-50.0 % Monocytes (%) (Auto) 4.7 0.0-12.0 % Eosinophils (%) (Auto) 0.6 0.0-7.0 % Basophils (%) (Auto) 0.4 0.0-2.0 % Neutrophils # (Auto) 4.9 1.6-8.6 10 ^3/uL Lymphocytes # (Auto) 2.1 0.4-5.4 10 ^3/uL Monocytes # (Auto) 0.4 0-1.3 10 ^3/uL Eosinophils # (Auto) 0 0-0.8 10 ^3/uL Basophils # (Auto) 0 0-0.2 10 ^3/uL Nucleated Red Blood Cells 0.1 % Prothrombin Time 9.9 9.3-11.8 sec Prothrombin Time INR 0.93 0.9-1.15 Activated Partial Thromboplast Time 27.1 24.5-34.5 SEC Urine Color Yellow Yellow Urine Clarity Clear Clear Urine pH 6.5 5.0-9.0 Urine Specific [place] 1.015 1.001-1.035 Urine Protein Negative Negative Urine Ketones Negative Negative Urine Blood Negative Negative /uL Urine Nitrite Negative Negative Urine Bilirubin Negative Negative Urine Urobilinogen Normal Negative mg/dL Urine Leukocyte Esterase 2+ Negative /uL Urine RBC 1 0 - 4 /hpf Urine WBC 2 0 - 5 /hpf Urine Squamous Epithelial Cells Few <5 /hpf Urine Bacteria None seen None Seen /hpf Urine Mucus Few None Seen Urine Glucose Normal Normal mg/dL Sodium Level 137 136-145 mmol/L Potassium Level 3.5 3.5-5.1 mmol/L Chloride Level 108 H 98-107 mmol/L Carbon Dioxide Level 22 20-31 mmol/L Anion Gap 7 5-15 Blood Urea Nitrogen 7 L 9-23 mg/dL Creatinine 0.58 0.550-1.02 mg/dL Glomerular Filtration Rate Calc 130 >90 mL/min BUN/Creatinine Ratio 12.1 10.0-20.0 Serum Glucose 100 74-106 mg/dL Calcium Level 9.1 8.7-10.4 mg/dL Total Bilirubin 0.5 0.2-1.0 mg/dL Aspartate Amino Transferase (AST) 50 H 13-40 U/L Alanine Aminotransferase (ALT) 116 H 7-40 U/L Alkaline Phosphatase 233 H 46-116 U/L Total Protein 6.3 5.7-8.2 g/dL Albumin 3.9 3.2-4.8 g/dL Urine Opiates Screen Neg NEGATIVE Urine Fentanyl Screen Neg NEGATIVE Urine Barbiturates Screen Neg NEGATIVE Urine Phencyclidine Screen Neg NEGATIVE Urine Amphetamines Screen Neg NEGATIVE Urine Benzodiazepines Screen Neg NEGATIVE Urine Cocaine Screen Neg NEGATIVE Urine Cannabinoids Screen Pos NEGATIVE Rapid Plasma Reagin Non reactive Non Reactive Treponema pallidum Ab (TP-PA) Pending Assessment Assessment GDMA1, IHCP, Induction of Labor at Term s/p Cytotec s/p COOK BALLOON s/p AMNIOTOMY Plan Plan Continue labor mgmt IV Pitocin augmentation John for GBS prophylaxis Anticipated Plan discussed with: Patient JAMELMIKE HART May 17, 2024 10:07
[2024-05-17] MEDS ORDERED: ePHEDrine SULFATE 50 MG/ML AMP IV ONE (14:45)
[2024-05-17] MEDS ORDERED: NALOXONE HCL 0.4 MG/ML VIAL IV ONE (14:45)
[2024-05-17] MEDS: URSODIOL 300 MG CAP ONE (17:08)
[2024-05-17] MEDS: ROPIVACAINE HCL 200 ML ONE (17:19)
--- NOTE | 2024-05-17 21:09 | DVHPN2 ---
Progress Note - Dictate Date Seen: May 17, 2024 Medical Necessity Reason Pt with a Central, PICC or Fol: Yes The following are medically ne: Damian Catheter Reason for damian catheter: Bladder Retention/Obstruc Medical Necessity Reason Epidural anesthesia Subjective Patient has had ruptured membranes since 10:00 am, at which time she was 5cm dilated s/p Epidural and Pitocin augmentation of labor Cervix is now 7cm/90%/-2 station w/ caput present. Patient DECLINED C/S delivery at this time, indication arrest of dilation x > 6 hr of ruptured membranes w/ Pitocin augmentation vital signs Vital Sign Date Time Temp Pulse Resp B/P (MAP) Pulse Ox O2 Delivery O2 Flow Rate FiO2 05/17/24 12:31 88 16 111/62 medications Current Medications Medications Dose Ordered Sig/Shaheed Route Start Time Stop Time Status Last Admin Dose Admin Lactated Ringer's 1,000 ml @ 125 mls/hr Q8H IV 05/15/24 22:30 05/17/24 20:48 125 MLS/HR Nalbuphine HCl 10 mg Q4HP PRN IV 05/15/24 22:30 05/17/24 12:31 10 MG Diagnostic Test (Pha) 1 strip Q4HR 05/16/24 04:00 05/16/24 02:56 1 STRIP Witch Litzy 1 pad PRN PRN TOP 05/15/24 22:30 05/16/24 00:46 1 PAD Sodium Lauryl Sulfate 240 ml PRN PRN TOP 05/15/24 22:30 05/16/24 00:46 240 ML Benzocaine 1 applic PRN PRN TOP 05/15/24 22:30 05/16/24 00:46 1 APPLIC Misoprostol 50 mcg Q4HPRN PRN PO 05/15/24 22:30 05/16/24 21:54 50 MCG Lidocaine HCl 20 ml ONCE PRN IJ 05/15/24 22:30 Terbutaline Sulfate 0.25 mg ONCE PRN SC 05/15/24 22:30 Ondansetron HCl 4 mg Q4HP PRN IV 05/15/24 22:30 Ursodiol 300 mg Q8HR PO 05/16/24 07:30 05/17/24 17:16 300 MG Oxytocin 1,000 ml @ 6 ml/hr Q24H IV 05/16/24 10:15 05/17/24 08:49 6 ML/HR Acetaminophen 650 mg Q4HP PRN PO 05/16/24 13:15 05/16/24 19:53 650 MG Penicillin G Potassium [id number] units/Dextrose 50 ml @ 100 mls/hr Q4H IV 05/17/24 07:30 objective Cx: 7cm/90%/-2 VTX with Caput present [place]: 09/08, mild to moderate (pitocin currently OFF) EFM: Category 1 laboratory and microbiology Laboratory Tests 05/15/24 22:55 Test 05/15/24 22:55 Range/Units Serum Glucose 100 74-106 mg/dL Assessment/Plan Induction of labor 37 wk for IHCP and GDMA1 Protracted labor GBS+ Plan: Patient declined 1' C/Section delivery at this time IUPC placed and Pitocin ordered to continue increasing drip to achieve 200 MVU of adequate contractions Ancef 2gm IV x 1 dose ordered for prophylaxis due to prolonged PROM We will allow for labor to progress in view of reassuring status. Anticipated . Indication for C/S in case of arrest of dilation in 2-3 more hours. Plan discussed with patient, RN and patient's family Plan discussed with: Patient MIKE GARSIA DO May 17, 2024 21:09
[2024-05-17] MEDS: ceFAZolin 2 GM/D5W50ml 50 ML IV ONE (21:11)
[2024-05-17] MEDS ORDERED: PIPERACILLIN-TAZOB 3.375GM 100 ML IV SCH ×2 (22:30→22:45)
[2024-05-17] MEDS: ACETAMINOPHEN 500 MG TAB PO PRN (22:55)
[2024-05-17] MEDS: PIPERACILLIN-TAZOB 3.375GM 100 ML IV SCH (23:07)
--- NOTE | 2024-05-18 03:19 | LDN2 ---
Labor and Delivery Note Date 05/18/24 Age 24 3 Para 2 AB 1 EGA 37.3 Diagnosis GDMA1, Intrahepatic cholestasis of , INDUCTION OF LABOR Early Term IUP, delivered Intrapartum fever, chorioamnionitis Protracted labor Vaginal Delivery: VTX Vacuum Assisted: No Placenta: Spontaneous Sex: Male Weight Pending Apgars 8/9 Amniotic Fluid: Clear Anesthesia Epidural Episiotomy: No Repaired with N/A Intact perineum EBL 50 mL Labs Laboratory Tests 02/05/24 09:59: Hepatitis B Surface Antigen Negative, HIV (1&2) Antibody Negative, Rubella Antibody Positive Blood Bank 05/15/24 22:55: Blood Type O POSITIVE Comments/Significant Med Viviana Continue IV ZOSYN 3.375mg IV q6h X 24 hr post delivery CBC in a.m tomorrow 05/19/24 Cord gases obtained Placenta sent to pathology MIKE GARSIA DO May 18, 2024 03:18
[2024-05-18] MEDS: LACT. RINGERS/OXYTOCIN 20UNITS 500 ML IV ONE (03:57)
[2024-05-18] MEDS ORDERED: ONDANSETRON HCL 4 MG/2 ML VIAL IV PRN (04:45)
[2024-05-18 05:27] LABS: Basophils # (auto) 0.1 10 ^3/uL (0-0.2); Basophils % (auto) 0.3 % (0.0-2.0); Eosinophils # (auto) 0 10 ^3/uL (0-0.8); Eosinophils % (auto) 0.1 % (0.0-7.0); Lymphocytes # (auto) 1.7 10 ^3/uL (0.4-5.4); Lymphocytes % (auto) 10.2 % (10.0-50.0); Mean Corpuscular Hgb Conc. 33.5 g/dL (32.0-36.0); Mean Corpuscular Volume 83.8 fL (80.0-100.0); Monocytes # (auto) 0.7 10 ^3/uL (0-1.3); Monocytes % (auto) 4.1 % (0.0-12.0); Neutrophils # (auto) 14.3 10 ^3/uL (1.6-8.6); Neutrophils % (auto) 85.3 % (37.0-80.0); Platelet Count (auto) 196 10^3/uL (140-450); Red Blood Cells 3.94 10^6/uL (4.0-5.20); Red Cell Distribution Width 13.9 % (11.8-14.3); White Blood Cell 16.8 10^3/uL (4.4-10.8)
[2024-05-18] MEDS: IBUPROFEN 600 MG TAB PO PRN ×2 (05:56→15:21)
[2024-05-18 06:30] VITALS: BP 109/65; PULSE 78; RESP 18; TEMP 98.2; O2SAT 95
[2024-05-18 11:02] VITALS: BP 102/56; PULSE 83; RESP 15; TEMP 98.1; O2SAT 95
--- NOTE | 2024-05-18 11:09 | DVHPN2 ---
Progress Note Date Seen: May 18, 2024 Subjective PPD#0 s/p , protracted labor, GDMA1, IHCP Intrapartum fever, Chorioamnionitis S: Pain mild. Lochia mild. No Fever/Chills. No N/V. Feels well vital signs Vital Sign Date Time Temp Pulse Resp B/P (MAP) Pulse Ox O2 Delivery O2 Flow Rate FiO2 05/18/24 07:35 99.1 05/18/24 06:30 78 18 109/65 (80) 95 05/18/24 06:10 Room Air Total Intake and Output 05/17/24 05/17/24 05/18/24 15:00 23:00 07:00 Output Total 900 ml Balance -900 ml medications Current Medications Medications Dose Ordered Sig/Shaheed Route Start Time Stop Time Status Last Admin Dose Admin Lactated Ringer's 1,000 ml @ 125 mls/hr Q8H IV 05/15/24 22:30 05/17/24 20:48 125 MLS/HR Diagnostic Test (Pha) 1 strip Q4HR 05/16/24 04:00 05/16/24 02:56 1 STRIP Witch Litzy 1 pad PRN PRN TOP 05/15/24 22:30 05/16/24 00:46 1 PAD Sodium Lauryl Sulfate 240 ml PRN PRN TOP 05/15/24 22:30 05/16/24 00:46 240 ML Benzocaine 1 applic PRN PRN TOP 05/15/24 22:30 05/16/24 00:46 1 APPLIC Ondansetron HCl 4 mg Q4HP PRN IV 05/15/24 22:30 Ursodiol 300 mg Q8HR PO 05/16/24 07:30 05/18/24 01:29 300 MG Oxytocin 1,000 ml @ 6 ml/hr Q24H IV 05/16/24 10:15 05/17/24 08:49 6 ML/HR Acetaminophen 650 mg Q4HP PRN PO 05/16/24 13:15 05/18/24 09:23 650 MG Acetaminophen 1,000 mg Q6HP PRN PO 05/17/24 22:30 05/17/24 22:55 1,000 MG Piperacillin Sod/ Tazobactam Sod 100 ml @ 200 mls/hr Q6H IV 05/17/24 22:45 05/18/24 05:01 200 MLS/HR Ibuprofen 600 mg Q6HP PRN PO 05/18/24 04:45 05/18/24 05:56 600 MG Docusate Sodium 200 mg HS PO 05/18/24 22:00 laboratory and microbiology Laboratory Tests 05/18/24 05:10 05/15/24 22:55 Test 05/15/24 22:55 Range/Units Serum Glucose 100 74-106 mg/dL Objective O: AFVSS Chest: heart and lung sounds normal. Abd soft, non-tender, fundus firm, BS, no rebound or guarding, Ext Neg Homans, Non-tender, edema Lochia - minimal Labs Reviewed. Assessment/Plan PPD#0 s/p , Intrapartum fever/Chorio-resolved PLan; Continue current care IV antibiotic x 24h post delivery. Possible D/C tomorrow CBC tomorrow in A.M. Plan discussed with: Patient MIKE GARSIA May 18, 2024 11:09
[2024-05-18] MEDS ORDERED: HYDROcodone-ACET 5/325MG TAB PO PRN (12:00)
[2024-05-18] MEDS: HYDROcodone-ACET 5/325MG TAB PO PRN (12:53)
[2024-05-18 14:30] VITALS: BP 117/70; PULSE 72; RESP 18; TEMP 98.1; O2SAT 98
[2024-05-18 19:20] VITALS: BP 133/61; PULSE 58; RESP 18; TEMP 97.8; O2SAT 100
[2024-05-18] MEDS: DOCUSATE SOD 100 MG CAP PO SCH (22:25)
[2024-05-18 23:15] VITALS: BP 101/66; PULSE 65; RESP 16; TEMP 97.7; O2SAT 97
[2024-05-19 03:00] VITALS: BP 90/53; PULSE 65; RESP 18; TEMP 97.7; O2SAT 95
[2024-05-19 04:34] LABS: Basophils # (auto) 0 10 ^3/uL (0-0.2); Basophils % (auto) 0.4 % (0.0-2.0); Eosinophils # (auto) 0.1 10 ^3/uL (0-0.8); Eosinophils % (auto) 1.6 % (0.0-7.0); Hemoglobin 10.5 g/dL (12.2-16.2); Lymphocytes # (auto) 2.8 10 ^3/uL (0.4-5.4); Lymphocytes % (auto) 31.6 % (10.0-50.0); Mean Corpuscular Hemoglobin 28.5 pg (28.0-32.0); Mean Corpuscular Hgb Conc. 33.9 g/dL (32.0-36.0); Mean Corpuscular Volume 83.9 fL (80.0-100.0); Monocytes # (auto) 0.5 10 ^3/uL (0-1.3); Monocytes % (auto) 5.6 % (0.0-12.0); Neutrophils # (auto) 5.4 10 ^3/uL (1.6-8.6); Neutrophils % (auto) 60.8 % (37.0-80.0); Nucleated Red Blood Cells % 0.1 %; Platelet Count (auto) 189 10^3/uL (140-450); Red Blood Cells 3.69 10^6/uL (4.0-5.20); Red Cell Distribution Width 13.8 % (11.8-14.3); White Blood Cell 8.9 10^3/uL (4.4-10.8)
--- NOTE | 2024-05-19 05:30 | DVHDS2 ---
Discharge Summary Date of Admission May 15, 2024 at 22:16 Date of Discharge: May 19, 2024 Admitting Diagnosis Induction of labor , IUP 37 weeks Intrahepatic Cholestasis of (IHCP) GDMA1 Labs/Diagnostic Data: Laboratory Results Test 05/19/24 03:53 05/17/24 23:00 05/15/24 22:55 05/15/24 21:55 White Blood Count 8.9 10^3/uL (4.4-10.8) Red Blood Count 3.69 10^6/uL (4.0-5.20) Hemoglobin 10.5 g/dL (12.2-16.2) Hematocrit 31.0 % (36.0-46.0) Mean Corpuscular Volume 83.9 fL (80.0-100.0) Mean Corpuscular Hemoglobin 28.5 pg (28.0-32.0) Mean Corpuscular Hemoglobin Concent 33.9 g/dL (32.0-36.0) Red Cell Distribution Width 13.8 % (11.8-14.3) Platelet Count 189 10^3/uL (140-450) Mean Platelet Volume 9.5 fL (6.9-10.8) Neutrophils (%) (Auto) 60.8 % (37.0-80.0) Lymphocytes (%) (Auto) 31.6 % (10.0-50.0) Monocytes (%) (Auto) 5.6 % (0.0-12.0) Eosinophils (%) (Auto) 1.6 % (0.0-7.0) Basophils (%) (Auto) 0.4 % (0.0-2.0) Neutrophils # (Auto) 5.4 10 ^3/uL (1.6-8.6) Lymphocytes # (Auto) 2.8 10 ^3/uL (0.4-5.4) Monocytes # (Auto) 0.5 10 ^3/uL (0-1.3) Eosinophils # (Auto) 0.1 10 ^3/uL (0-0.8) Basophils # (Auto) 0 10 ^3/uL (0-0.2) Nucleated Red Blood Cells 0.1 % POC Glucose 78 mg/dl (70-106) Prothrombin Time 9.9 sec (9.3-11.8) Prothrombin Time INR 0.93 (0.9-1.15) Activated Partial Thromboplast Time 27.1 SEC (24.5-34.5) Urine Color Yellow (Yellow) Urine Clarity Clear (Clear) Urine pH 6.5 (5.0-9.0) Urine Specific [place] 1.015 (1.001-1.035) Urine Protein Negative (Negative) Urine Ketones Negative (Negative) Urine Blood Negative /uL (Negative) Urine Nitrite Negative (Negative) Urine Bilirubin Negative (Negative) Urine Urobilinogen Normal mg/dL (Negative) Urine Leukocyte Esterase 2+ /uL (Negative) Urine RBC 1 /hpf (0 - 4) Urine WBC 2 /hpf (0 - 5) Urine Squamous Epithelial Cells Few /hpf (<5) Urine Bacteria None seen /hpf (None Seen) Urine Mucus Few (None Seen) Urine Glucose Normal mg/dL (Normal) Sodium Level 137 mmol/L (136-145) Potassium Level 3.5 mmol/L (3.5-5.1) Chloride Level 108 mmol/L (98-107) Carbon Dioxide Level 22 mmol/L (20-31) Anion Gap 7 (5-15) Blood Urea Nitrogen 7 mg/dL (9-23) Creatinine 0.58 mg/dL (0.550-1.02) Glomerular Filtration Rate Calc 130 mL/min (>90) BUN/Creatinine Ratio 12.1 (10.0-20.0) Serum Glucose 100 mg/dL (74-106) Calcium Level 9.1 mg/dL (8.7-10.4) Total Bilirubin 0.5 mg/dL (0.2-1.0) Aspartate Amino Transferase (AST) 50 U/L (13-40) Alanine Aminotransferase (ALT) 116 U/L (7-40) Alkaline Phosphatase 233 U/L (46-116) Total Protein 6.3 g/dL (5.7-8.2) Albumin 3.9 g/dL (3.2-4.8) Urine Opiates Screen Neg (NEGATIVE) Urine Fentanyl Screen Neg (NEGATIVE) Urine Barbiturates Screen Neg (NEGATIVE) Urine Phencyclidine Screen Neg (NEGATIVE) Urine Amphetamines Screen Neg (NEGATIVE) Urine Benzodiazepines Screen Neg (NEGATIVE) Urine Cocaine Screen Neg (NEGATIVE) Urine Cannabinoids Screen Pos (NEGATIVE) Rapid Plasma Reagin Non reactive (Non Reactive) Other Laboratory Tests 05/19/24 03:53 05/15/24 22:55 Brief Hx & Hospital Course: Induction of labor with protracted labor course Intrapartum fever hours before delivery IV antibiotics given intrapartum and for 24h Afebrile , uterus non tender, WBC improved, no signs of infection Discharged in stable condition Condition at Discharge: Stable Final Diagnosis/Problems List Term delivered Chorioamnionitis in labor Secondary Diagnosis: IHCP GDMA1 Discharge Disposition: Home Discharge Instruct/Medications Diet: Regular Activity: Light activity Activity comment: Pelvic rest x 6 wk Follow Up/Referral: Dr. Jimenes in 1 week Discharge Statement: "Patient was advised to return to the ER or call 911 if any headaches, dizziness, shortness of breath, chest pain, abdominal pain, bleeding, fevers, or worsening of medical condition. Patient was counseled about treatment plan, medications, possible side effects, patientverbalized understanding. All questions were answered to the best of my ability. This discharge took greater then 30 minutes in planning, reviewing documentation, counseling the patient, and discussing with other team members." ASSESSMENT ASSESSMENT Assessment MIKE GARSIA DO May 19, 2024 05:30
[2024-05-19 06:30] VITALS: BP 107/63; PULSE 62; RESP 18; TEMP 98; O2SAT 98
[2024-05-19] MEDS: TETANUS-DIPTH-ACEL PERTUSSIS 0.5ML SYR Tdap IM ONE (10:07)
[2024-05-19 11:01] VITALS: BP 107/63; PULSE 62; RESP 18; TEMP 98; O2SAT 98
== END 2024-05-19 11:20 | disposition home or self-care (01) | DRG 560 ==
LOC: LDRP 22:16
PROVIDERS: ADMIT Obstetrics & Gynecology; ATTEND Obstetrics & Gynecology
PROC: 10E0XZZ Delivery of Products of Conception, External Approach (ICD-10-PCS; principal; 2024-05-18)
PROC: 3E0DXGC Introduction of Other Therapeutic Substance into Mouth and Pharynx, External Approach (ICD-10-PCS; 2024-05-18)
PROC: 3E0R3BZ Introduction of Anesthetic Agent into Spinal Canal, Percutaneous Approach (ICD-10-PCS; 2024-05-18)
PROC: 00HU33Z Insertion of Infusion Device into Spinal Canal, Percutaneous Approach (ICD-10-PCS; 2024-05-18)
PROC: 10907ZC Drainage of Amniotic Fluid, Therapeutic from Products of Conception, Via Natural or Artificial Opening (ICD-10-PCS; 2024-05-18)
DX: O41.1230 Chorioamnionitis, third trimester, not applicable or unspecified (principal); Z37.0 Single live birth; O26.643 Intrahepatic cholestasis of pregnancy, third trimester; O24.420 Gestational diabetes mellitus in childbirth, diet controlled; O63.9 Long labor, unspecified; O99.824 Streptococcus B carrier state complicating childbirth; L29.9 Pruritus, unspecified; Z3A.37 37 weeks gestation of pregnancy
CPT/HCPCS: 36415; 59025; 59200; 59409; 76815; 80053; 80307; 81001; 81002; 82948; 82962; 85025; 85610; 85730; 86592; 86780; 86850; 86900; 86901; 90715; 94760; 94762; 96360; 96361; 96365; 96366; G0378; J2540; J2543; J2590; J7060